=== PATIENT | male | born 1990 | race Caucasian/White ===

== ENCOUNTER 2022-06-26 22:05 | Emergency (ER) | payer OTHER, SELFPAY ==
[2022-06-26 22:14] VITALS: BP 145/77; PULSE 116; RESP 20; TEMP 37.3; O2SAT 100
[2022-06-26 22:23] VITALS: BP 126/80; PULSE 94; RESP 20; O2SAT 100
--- NOTE | 2022-06-26 22:28 | ED.GENADULT ---
HPI - General Adult General Chief complaint: Fever Stated complaint: FEVER Time Seen by Provider: 06/26/22 22:15 History of Present Illness HPI narrative: the patient is an otherwise healthy 31-year-old male nonsmoker, not vaccinated against COVID-19, was not contracted COVID-19 in the past. He presents with a 2 day history of upper respiratory tract infection symptoms consisting of changes in his voice, sore throat, chest congestion, dry cough. Yesterday, he had 4 bouts of emesis but none today. No more with nausea. No abdominal pain. No chest pain. This evening, at 8:00 p.m., the patient developed a fever, maximum 102.5?. Also with chills but no diaphoresis. He took antipyretics. No earache. No abdominal pain. No UTI symptoms. No sick contacts. No rhinorrhea or nasal congestion. Related Data Home Medications Medication Instructions Recorded Confirmed No Home Medications 06/26/22 06/26/22 Allergies Allergy/AdvReac Type Severity Reaction Status Date / Time No Known Allergies Allergy Mild Unverified 05/13/04 16:54 Review of Systems Review of Systems: All systems reviewed & are unremarkable except as noted in HPI and below Constitutional: Constitutional: Reports chills, Denies excessive sweating, Reports fatigue, Reports fever(s), Denies headache(s) and Denies weakness Eyes: Eyes: Denies change in vision and Denies photophobia ENT: Denies dysphagia, Denies dizziness, Denies headache(s), Denies lip swelling, Denies nasal congestion, Reports sore throat and Denies tongue swelling Cardiovascular: Cardiovascular: Denies chest pain, Denies syncope, Denies rapid heart rate and Denies dyspnea Respiratory: Respiratory: Reports cough, Denies dyspnea and Denies wheezing Gastrointestinal: Gastrointestinal: Denies abdominal pain, Denies constipation, Denies dysphagia, Denies diarrhea, Reports nausea (yesterday) and Reports vomiting (yesterday) Genitourinary: Genitourinary: Denies hematuria, Denies dysuria, Denies urinary frequency and Denies urinary urgency Musculoskeletal: Musculoskeletal: Denies back pain, Reports myalgias, Denies arthralgias, Denies joint swelling and Denies numbness Integumentary/Breasts: Skin/Breast: Denies pruritus, Denies erythema and Denies rash Neurologic: Denies confusion, Denies dizziness, Denies syncope, Denies headache(s), Denies focal weakness, Denies numbness and Denies weakness Psychiatric: Psychiatric: Denies anxiety and Denies confusion Endocrine: Endocrine: Denies excessive sweating Hematologic/Lymphatic: Hematologic/Lymphatic: Denies easy bleeding and Denies easy bruising Allergic/Immunologic: Allergic/Immunologic: Denies lip swelling, Denies tongue swelling and Denies wheezing Exam Const: General: healthy appearing, no acute distress, alert and well nourished; No confusion Nutritional Appearance: well nourished Orientation/consciousness: patient oriented x3 and No confusion Limitations: no limitations HENMT: Head: normal to inspection Ears: external ears normal Face/Nose/Sinus: normal facial exam Face and sinus: normal facial exam Mouth: Yes moist mucous membranes Throat: posterior oropharynx normal Other: voice slightly hoarse. tonsils surgically absent. Eyes: Conjunctivae: conjunctivae normal Pupils: Equal, round and reactive pupils present EOM: EOMs intact bilaterally Direct Ophthalmoscopy: No photophobia Neck: Neck: normal visual inspection and no meningeal signs Chest: Chest palpation & inspection: normal inspection of the chest and no tenderness Resp: Effort & Inspection: normal respiratory effort and not labored Auscultation: clear to auscultation bilaterally, no crackles, no rhonchi and no wheezes Cardio: Rate: regular rate Rhythm: regular rhythm Heart sounds: no murmurs GI: Inspection: non-distended GI Palp: Yes Soft to palpation, No Tenderness to palpation present (GI), No Guarding due to palpation present (GI) and No Rebound tenderness present :
[2022-06-26 22:57] LABS: Strep Group A RT-PCR NOT DETECTED (Negative)
[2022-06-26 23:07] LABS: Influenza A QL RT-PCR Negative (Negative); Influenza B QL RT-PCR Negative (Negative); RSV RNA, RT-PCR Negative (Negative); SARS-CoV-2 RNA PCR Negative (Negative)
[2022-06-26 23:14] VITALS: BP 121/81; PULSE 88; RESP 20; TEMP 36.7; O2SAT 100
== END 2022-06-26 23:17 | disposition home or self-care (01) ==
LOC: CHSED 22:50
PROVIDERS: Emergency Provider Emergency Medicine
DX: J06.9 Acute upper respiratory infection, unspecified (principal); Z20.822 Contact with and (suspected) exposure to COVID-19
CPT/HCPCS: 87637; 87651; 99282